=== PATIENT | male | born 1980 | race Caucasian/White ===

== ENCOUNTER 2018-12-01 13:26 | Emergency (ER) | payer BC ==
[~2018-12-01] VITALS: Ht 182.9 cm; Wt 109.0 kg
[2018-12-01] MEDS ORDERED: ketorolac trometh. 30mg/ml inj. IV ONE (13:45)
[2018-12-01] MEDS ORDERED: ondansetron/PF 4mg/2ml inj IV ONE (13:45)
[2018-12-01] MEDS ORDERED: pantoprazole 40 MG vial IV ONE (13:45)
[2018-12-01] MEDS ORDERED: proCHLORperazine 10 MG/2 ml inj IV ONE (13:45)
[2018-12-01] MEDS ORDERED: normal saline 1000ml 1,000 ML IV ONE (13:45)
[2018-12-01] MEDS ORDERED: LORazepam 2 mg/ml vial IV ONE (13:45)
[2018-12-01] MEDS ORDERED: glycopyrrolate 0.2mg/ml inj IV ONE (13:50)
[2018-12-01 14:04] LABS: BASOPHILS # (AUTO) 0.1 X10'3 (0-0.2); BASOPHILS % (AUTO) 0.4 % (0-1); EOSINOPHILS % (AUTO) 0 % (0-6); HEMATOCRIT 46.2 % (42.0-52.0); HEMOGLOBIN 15.9 g/dl (14.0-17.9); LYMPHOCYTES # (AUTO) 0.9 X10'3 (1.1-4.8); LYMPHOCYTES % (AUTO) 6.9 % (21-51); MEAN CORPUSCULAR HEMOGLOBIN 28.5 PG (27.0-31.0); MEAN CORPUSCULAR HGB CONC 34.4 g/dL (33.0-36.5); MEAN CORPUSCULAR VOLUME 82.8 FL (78-98); MEAN PLATELET VOLUME 8.8 FL (7.4-10.4); MONOCYTES # (AUTO) 0.8 X10'3 (0-0.9); MONOCYTES % (AUTO) 5.9 % (2-12); NEUTROPHILS # (AUTO) 11.9 X10'3 (1.8-7.7); NEUTROPHILS % (AUTO) 86.8 % (42-75); PLATELET COUNT 342 X10'3 (140-440); RED BLOOD COUNT 5.59 X10'6 (4.70-6.10); RED CELL DISTRIBUTION WIDTH 13.4 % (11.5-14.5); WHITE BLOOD COUNT 13.7 X10'3 (4.5-11.0)
[2018-12-01 14:21] LABS: PROTHROMBIN TIME 10.6 SECONDS (9.0-12.0)
[2018-12-01 14:24] LABS: ALANINE AMINOTRANSFERASE 40 U/L (12-78); ALBUMIN 4.3 G/DL (3.4-5.0); ALBUMIN/GLOBULIN RATIO 1.3 (1.1-1.5); ALKALINE PHOSPHATASE 87 IU/L (46-116); ANION GAP 17 (8-16); ASPARTATE AMINO TRANSFERASE 26 U/L (10-37); BLOOD UREA NITROGEN 16 MG/DL (7-18); BUN/CREATININE RATIO 13.4 (5.4-32.0); CALCIUM 9.9 MG/DL (8.5-10.1); CHLORIDE 104 MMOL/L (99-107); CREATININE 1.19 MG/DL (0.60-1.10); GLUCOSE 121 MG/DL (70-104); LIPASE 62 U/L (73-393); POTASSIUM 3.9 MMOL/L (3.5-5.1); SODIUM 142 MMOL/L (135-145); TOTAL CARBON DIOXIDE 20.9 MMOL/L (24-32); TOTAL PROTEIN 7.5 G/DL (6.4-8.2); eGFR 68 ML/MIN
[2018-12-01 14:36] VITALS: BP 135/85
[2018-12-01] MEDS ORDERED: ONDA8TAB6 PO (14:37)
[2018-12-01] MEDS ORDERED: PANT20TA2 PO (14:37)
--- NOTE | 2018-12-01 14:39 | NUR ---
pt unable to void for ua
== END 2018-12-01 15:12 | disposition home or self-care (01) ==
LOC: ER 13:27
DX: K22.6 Gastro-esophageal laceration-hemorrhage syndrome (principal); K29.70 Gastritis, unspecified, without bleeding; Z79.899 Other long term (current) drug therapy
CPT/HCPCS: 36415; 80053; 83690; 85025; 85610; 96374; 96375; 99283; C9113; J0780; J1885; J2060; J2405; J7030; J3490

== ENCOUNTER 2018-12-03 10:53 | Emergency (ER) | payer BC ==
[~2018-12-03] VITALS: Ht 188 cm; Wt 107.0 kg
[~2018-12-03 10:53] MED LIST: ONDA8TAB6 PO; PANT20TA2 PO
[2018-12-03 11:33] LABS: BASOPHILS # (AUTO) 0.1 X10'3 (0-0.2); BASOPHILS % (AUTO) 0.9 % (0-1); EOSINOPHILS % (AUTO) 0.2 % (0-6); HEMATOCRIT 45.5 % (42.0-52.0); HEMOGLOBIN 15.7 g/dl (14.0-17.9); LYMPHOCYTES # (AUTO) 1.7 X10'3 (1.1-4.8); LYMPHOCYTES % (AUTO) 19.2 % (21-51); MEAN CORPUSCULAR HEMOGLOBIN 28.6 PG (27.0-31.0); MEAN CORPUSCULAR HGB CONC 34.5 g/dL (33.0-36.5); MEAN CORPUSCULAR VOLUME 82.8 FL (78-98); MEAN PLATELET VOLUME 8.6 FL (7.4-10.4); MONOCYTES # (AUTO) 0.7 X10'3 (0-0.9); NEUTROPHILS # (AUTO) 6.3 X10'3 (1.8-7.7); NEUTROPHILS % (AUTO) 71.7 % (42-75); PLATELET COUNT 329 X10'3 (140-440); RED BLOOD COUNT 5.49 X10'6 (4.70-6.10); RED CELL DISTRIBUTION WIDTH 13.5 % (11.5-14.5); WHITE BLOOD COUNT 8.8 X10'3 (4.5-11.0)
[2018-12-03 11:47] LABS: ALANINE AMINOTRANSFERASE 37 U/L (12-78); ALBUMIN 4.1 G/DL (3.4-5.0); ALBUMIN/GLOBULIN RATIO 1.3 (1.1-1.5); ALKALINE PHOSPHATASE 79 IU/L (46-116); ANION GAP 12 (8-16); ASPARTATE AMINO TRANSFERASE 23 U/L (10-37); BILIRUBIN,TOTAL 0.8 MG/DL (0.1-1.0); BLOOD UREA NITROGEN 14 MG/DL (7-18); BUN/CREATININE RATIO 9.5 (5.4-32.0); CALCIUM 9.8 MG/DL (8.5-10.1); CHLORIDE 108 MMOL/L (99-107); CREATININE 1.47 MG/DL (0.60-1.10); GLUCOSE 110 MG/DL (70-104); POTASSIUM 3.7 MMOL/L (3.5-5.1); SODIUM 141 MMOL/L (135-145); TOTAL CARBON DIOXIDE 20.9 MMOL/L (24-32); TOTAL PROTEIN 7.3 G/DL (6.4-8.2); eGFR 53 ML/MIN
[2018-12-03 11:50] LABS: PROTHROMBIN TIME 10.3 SECONDS (9.0-12.0)
[2018-12-03] MEDS ORDERED: ondansetron/PF 4mg/2ml inj IV ONE (12:20)
[2018-12-03] MEDS ORDERED: normal saline 1000ML IV soln IVB ONE (12:20)
[2018-12-03] MEDS ORDERED: famotidine/PF 10 mg/ml inj IV ONE (12:20)
[2018-12-03] MEDS ORDERED: pantoprazole 40 MG vial IV ONE (12:20)
[2018-12-03] MEDS ORDERED: HYDROmorphone 1 mg/ml syringe IV ONE (12:50)
[2018-12-03] MEDS ORDERED: haloperidol lactate 5mg/ml inj IM ONE (13:10)
[2018-12-03 13:36] LABS: LIPASE 116 U/L (73-393)
[2018-12-03] MEDS ORDERED: HYDROmorphone 1 mg/ml syringe IV PRN (13:40)
[2018-12-03 15:02] LABS: CLARITY,URINE CLEAR (Clear); COLOR,URINE YELLOW (Yellow); GLUCOSE, URINE NEGATIVE (Neg); KETONES,URINE 15 mg/dl (Neg); LEUKOCYTE ESTERASE ,URINE NEGATIVE (Neg); NITRITES, URINE NEGATIVE (Neg); OCCULT BLOOD,URINE NEGATIVE (Neg); PH,URINE 6.5 (4.8-8.0); PROTEIN,URINE NEGATIVE (Neg); UROBILINOGEN,URINE 0.2 E.U/dL (0.2-1.0)
[2018-12-03] MEDS ORDERED: SUCR1TAB34 PO (15:02)
[2018-12-03] MEDS ORDERED: FAMO20TA44 PO (15:02)
[2018-12-03] MEDS ORDERED: ONDA4TAB6 PO (15:02)
[2018-12-03] MEDS ORDERED: OMEP20CA10 PO (15:02)
[2018-12-03 15:04] LABS: UA COLLECTION TYPE CLN CATCH MIDSTREAM
[2018-12-03 15:19] VITALS: BP 141/76
[2018-12-03 18:18] LABS: OCCULT BLOOD STOOL NEGATIVE (Neg)
== END 2018-12-03 15:22 | disposition home or self-care (01) ==
LOC: ER 10:54
DX: K52.89 Other specified noninfective gastroenteritis and colitis (principal); R10.84 Generalized abdominal pain; R10.13 Epigastric pain; R10.11 Right upper quadrant pain; R10.12 Left upper quadrant pain; F12.90 Cannabis use, unspecified, uncomplicated; K21.9 Gastro-esophageal reflux disease without esophagitis; Z79.899 Other long term (current) drug therapy
CPT/HCPCS: 36415; 74176; 76700; 80053; 81003; 82272; 83690; 85025; 85610; 96372; 96374; 96375; 96376; 99284; C9113; J1170; J1630; J2405; J3490; J7030; 96361

== ENCOUNTER 2021-02-03 17:42 | Emergency (ER) | payer BC ==
[~2021-02-03] VITALS: Ht 190.5 cm; Wt 102.7 kg
[~2021-02-03 17:42] MED LIST changes: +FAMO20TA44 PO; +OMEP20CA15 PO; +ONDA4TAB6 PO; +SUCR1TAB34 PO
[2021-02-03 18:07] LABS: BASOPHILS % (AUTO) 0.2 % (0-1); EOSINOPHILS % (AUTO) 0 % (0-6); HEMOGLOBIN 15.9 g/dl (14.0-17.9); LYMPHOCYTES # (AUTO) 0.9 X10'3 (1.1-4.8); LYMPHOCYTES % (AUTO) 6.3 % (21-51); MEAN CORPUSCULAR HEMOGLOBIN 28.8 PG (27.0-31.0); MEAN CORPUSCULAR HGB CONC 33.8 g/dL (33.0-36.5); MEAN CORPUSCULAR VOLUME 85.3 FL (78-98); MEAN PLATELET VOLUME 8.8 FL (7.4-10.4); MONOCYTES # (AUTO) 0.7 X10'3 (0-0.9); MONOCYTES % (AUTO) 4.8 % (2-12); NEUTROPHILS # (AUTO) 12.9 X10'3 (1.8-7.7); NEUTROPHILS % (AUTO) 88.7 % (42-75); PLATELET COUNT 369 X10'3 (140-440); RED BLOOD COUNT 5.52 X10'6 (4.70-6.10); RED CELL DISTRIBUTION WIDTH 13.8 % (11.5-14.5); WHITE BLOOD COUNT 14.6 X10'3 (4.5-11.0)
[2021-02-03 18:24] LABS: ALANINE AMINOTRANSFERASE 34 U/L (12-78); ALBUMIN 4.6 G/DL (3.4-5.0); ALBUMIN/GLOBULIN RATIO 1.4 (1.1-1.5); ALKALINE PHOSPHATASE 78 IU/L (46-116); AMYLASE 77 U/L (25-115); ANION GAP 15 (8-16); ASPARTATE AMINO TRANSFERASE 24 U/L (10-37); BILIRUBIN,TOTAL 0.8 MG/DL (0.1-1.0); BLOOD UREA NITROGEN 17 MG/DL (7-18); BUN/CREATININE RATIO 14.4 (5.4-32.0); CHLORIDE 106 MMOL/L (99-107); CREATININE 1.18 MG/DL (0.60-1.10); GLUCOSE 135 MG/DL (70-104); LIPASE 52 U/L (73-393); SODIUM 142 MMOL/L (135-145); TOTAL CARBON DIOXIDE 20.7 MMOL/L (24-32); eGFR 68 ML/MIN
[2021-02-03] MEDS ORDERED: LORazepam 2 mg/ml vial IV ONE (18:55)
[2021-02-03] MEDS ORDERED: normal saline 1000ML IV soln IVB ONE ×2 (18:55→21:00)
--- NOTE | 2021-02-03 18:59 | NUR ---
dr eastman aware patient vomited 300 ml red tinged bile
[2021-02-03 19:02] LABS: ETHANOL < 0.010 GM/DL (0.0-0.010)
[2021-02-03] MEDS ORDERED: pantoprazole 40 MG vial IV ONE (19:05)
[2021-02-03] MEDS ORDERED: famotidine/PF 10 mg/ml inj IV ONE (19:05)
--- NOTE | 2021-02-03 20:40 | NUR ---
ultrasound done, dr eastman informed that hhis abdominal pain "is coming back"
[2021-02-03] MEDS ORDERED: diphenhydrAMINE 50 mg/ml inj IV ONE (20:45)
[2021-02-03] MEDS ORDERED: metoclopramide 5 mg/ml inj IV ONE (20:45)
[2021-02-03 20:46] LABS: CLARITY,URINE CLEAR (Clear); COLOR,URINE YELLOW (Yellow); GLUCOSE, URINE NEGATIVE (Neg); KETONES,URINE >=80 mg/dl (Neg); LEUKOCYTE ESTERASE ,URINE NEGATIVE (Neg); NITRITES, URINE NEGATIVE (Neg); OCCULT BLOOD,URINE NEGATIVE (Neg); PH,URINE 8.5 (4.8-8.0); PROTEIN,URINE TRACE mg/dl (Neg); UROBILINOGEN,URINE 0.2 E.U/dL (0.2-1.0)
[2021-02-03 20:52] LABS: UA COLLECTION TYPE URINAL
[2021-02-03 20:56] LABS: BACTERIA,URINE NONE SEEN /HPF (Neg); MUCUS STRANDS NONE SEEN /LPF (Neg); RBC,URINE 0-2 /HPF (0-2); SQUAMOUS EPITHELIAL CELL,UR NONE SEEN /LPF (FEW); WBC,URINE 0-4 /HPF (0-4)
[2021-02-03 21:00] LABS: URINE AMPHETAMINE SCREEN NEGATIVE (Neg); URINE BARBITUATE SCREEN NEGATIVE (Neg); URINE BENZODIAZEPINES SCREEN NEGATIVE (Neg); URINE CANNABINOID SCREEN POSITIVE (Neg); URINE COCAINE SCREEN NEGATIVE (Neg); URINE METHADONE SCREEN NEGATIVE (Neg); URINE OPIATE SCREEN NEGATIVE (Neg); URINE PHENCYCLIDINE SCREEN NEGATIVE (Neg)
[2021-02-03] MEDS ORDERED: normal saline 1000ml 1,000 ML IV ONE (21:05)
[2021-02-03] MEDS ORDERED: PROM12.512 PO (21:31)
[2021-02-03] MEDS ORDERED: PANT20TA18 PO (21:31)
[2021-02-03 21:54] VITALS: BP 153/85
== END 2021-02-03 21:55 | disposition home or self-care (01) ==
LOC: ER 17:43
DX: K52.9 Noninfective gastroenteritis and colitis, unspecified (principal); R11.2 Nausea with vomiting, unspecified; R10.84 Generalized abdominal pain; K21.9 Gastro-esophageal reflux disease without esophagitis; F12.90 Cannabis use, unspecified, uncomplicated; Z72.89 Other problems related to lifestyle; Z79.899 Other long term (current) drug therapy
CPT/HCPCS: 36415; 76700; 80053; 80305; 80320; 81001; 82150; 83690; 85025; 96361; 96374; 96375; 99285; C9113; J1200; J2060; J2765; J3490; J7030

== ENCOUNTER 2024-01-12 14:41 | Emergency (ER) | payer BC ==
[~2024-01-12] VITALS: Ht 190.5 cm; Wt 111.4 kg
[~2024-01-12 14:41] MED LIST changes: +PANT20TA18 PO; +PROM12.512 PO
[2024-01-12 14:49] VITALS: TEMP 98
[2024-01-12] MEDS: TETanus/Pertussis (Acell)/Diphther VAC/PF (Tdap-Adult) 0.5ml syringe IMVAC ONE (17:16)
[2024-01-12] MEDS: BUPIVAcaine 0.5% W/EPI /PF 30ml vial IJ STA (17:16)
[2024-01-12 18:07] VITALS: BP 122/73; PULSE 62; RESP 12; O2SAT 99
[2024-01-12] MEDS: BUPIVAcaine 0.5% W/EPI /PF 10ml vial IJ STA (18:22)
== END 2024-01-12 19:41 | disposition home or self-care (01) ==
LOC: ER 14:41
DX: S61.411A Laceration without foreign body of right hand, initial encounter (principal); X58.XXXA Exposure to other specified factors, initial encounter; Y93.89 Activity, other specified; Y92.89 Other specified places as the place of occurrence of the external cause; Y99.8 Other external cause status
CPT/HCPCS: 12001; 73130; 90471; 90715; 99283; S0020; A6446